=== PATIENT | female | born 1940 | race Two or more races ===

== ENCOUNTER 2023-09-13 10:44 | Inpatient (IN) | payer BC, OTHER ==
[~2023-09-13] VITALS: Ht 149.9 cm; Wt 75.8 kg
[2023-09-13 13:56] LABS: Chloride 108 mmol/L (98-107); Potassium 5.4 mmol/L (3.5-5.1); Sodium 134 mmol/L (136-145)
[2023-09-13 13:57] LABS: Anion Gap 9 (5-15); Carbon Dioxide 17 mmol/L (20-30)
[2023-09-13 13:58] LABS: Calcium 9.6 mg/dL (8.7-10.4)
[2023-09-13 14:00] LABS: INR 1.03 (0.9-1.15); Partial Thromboplastin Time 28.8 SEC (24.5-34.5); Prothrombin Time 10.8 sec (9.3-11.8)
[2023-09-13 14:02] LABS: BUN/Creatinine Ratio 28.6 (10.0-20.0); Blood Urea Nitrogen 32 mg/dL (9-23); Glucose 176 mg/dL (74-106)
[2023-09-13 14:18] LABS: Basophils # (auto) 0 10 ^3/uL (0-0.2); Basophils % (auto) 0.2 % (0.0-2.0); Eosinophils # (auto) 0.1 10 ^3/uL (0-0.8); Eosinophils % (auto) 0.4 % (0.0-7.0); Hemoglobin 11.9 g/dL (12.2-16.2); Lymphocytes # (auto) 1.6 10 ^3/uL (0.4-5.4); Lymphocytes % (auto) 11.5 % (10.0-50.0); Mean Corpuscular Hemoglobin 31.1 pg (28.0-32.0); Mean Corpuscular Volume 96.9 fL (80.0-100.0); Monocytes # (auto) 0.7 10 ^3/uL (0-1.3); Monocytes % (auto) 5.3 % (0.0-12.0); Neutrophils # (auto) 11.6 10 ^3/uL (1.6-8.6); Neutrophils % (auto) 82.6 % (37.0-80.0); Nucleated Red Blood Cells % 0.1 %; Red Blood Cells 3.82 10^6/uL (4.0-5.20); Red Cell Distribution Width 13.6 % (11.8-14.3); White Blood Cell 14.1 10^3/uL (4.4-10.8)
[2023-09-13] MEDS: ONDANSETRON HCL 4 MG/2 ML VIAL IV ONE (14:49)
[2023-09-13] MEDS: MORPHINE SULFATE INJ 2 MG/ml SYRG IV ONE (14:50)
[2023-09-13] MEDS: SODIUM BICARB 8.4% 50Meq/50ml SYR INJ IV ONE (15:00)
[2023-09-13 15:03] LABS: Urine Bacteria FEW /hpf (None Seen); Urine Blood Negative /uL (Negative); Urine Clarity Clear (Clear); Urine Color Colorless (Yellow); Urine Hyaline Cast FEW /lpf (0 - 2); Urine Protein, UAD Negative (Negative); Urine Specific Gravity 1.011 (1.001-1.035); Urine Urobilinogen Normal (Negative); Urine WBC 1 /hpf (0 - 5)
[2023-09-13] MEDS: CALCIUM GLUC 1,000mg/50ml-NS 50 ML IV ONE (15:42)
[2023-09-13] MEDS: DEXTROSE (50%) 50ML SYRG IV ONE (15:42)
[2023-09-13] MEDS: FUROSEMIDE 20 MG/2 ML VIAL IV ONE (15:42)
[2023-09-13] MEDS: InsuLIN REG 1unit/0.01ml Soln (100units/ml) IV ONE (15:49)
[2023-09-13 15:57] VITALS: PULSE 69; RESP 16; O2SAT 96
[2023-09-13] MEDS ORDERED: MORPHINE SULFATE INJ 2 MG/ml SYRG IV PRN (17:00)
[2023-09-13] MEDS ORDERED: ACETAMINOPHEN 325 MG TAB PO PRN (17:00)
[2023-09-13] MEDS ORDERED: SODIUM CHLORIDE 0.9% 1,000 ML IV SCH (17:00)
[2023-09-13] MEDS ORDERED: NITROGLYCERIN 0.4 MG SL TAB SL PRN (17:00)
[2023-09-13] MEDS: SODIUM CHLORIDE 0.9% 1,000 ML IV SCH (17:45)
[2023-09-13 18:17] LABS: Chloride 108 mmol/L (98-107); Potassium 5.2 mmol/L (3.5-5.1); Sodium 135 mmol/L (136-145)
[2023-09-13 18:18] LABS: Anion Gap 5 (5-15); Calcium 9.3 mg/dL (8.5-10.1); Carbon Dioxide 22 mmol/L (20-30)
[2023-09-13 18:23] LABS: BUN/Creatinine Ratio 29.2 (10.0-20.0); Blood Urea Nitrogen 31 mg/dL (9-23); Glucose 202 mg/dL (74-106)
[2023-09-13 19:30] VITALS: PULSE 67; RESP 16; O2SAT 100
[2023-09-13] MEDS: MORPHINE SULFATE INJ 2 MG/ml SYRG IV PRN (21:53)
[2023-09-13] MEDS: ONDANSETRON HCL 4 MG/2 ML VIAL IV PRN (21:54)
[2023-09-13] MEDS: SODIUM ZIRCONIUM CYCL 10 GM PAK PO SCH (22:32)
[2023-09-13] MEDS: HEPARIN SODIUM (PORCINE) 5000 UNITS/ML 1ML VIAL SC SCH (22:32)
[2023-09-14] VITALS (10 sets, daily range): BP systolic 127–154; BP diastolic 33–85; PULSE 60–88; RESP 13–20; TEMP 97.3–98.3; O2SAT 10–99
[2023-09-14] MEDS ORDERED: SUCCINYLCHOLINE CHLORIDE 20 MG/ML 10ML VIAL IV ONE (01:14)
[2023-09-14] MEDS ORDERED: LISI40TA16 PO (01:55)
[2023-09-14] MEDS ORDERED: METO200T42 PO (01:55)
[2023-09-14] MEDS ORDERED: NIFE1TAB31 PO (01:55)
[2023-09-14] MEDS ORDERED: ALEN70TA74 PO (01:55)
[2023-09-14] MEDS ORDERED: CLON0.1T PO (01:55)
[2023-09-14] MEDS ORDERED: APIX5TAB PO (01:55)
[2023-09-14] MEDS ORDERED: TRIA75TA55 PO (01:58)
[2023-09-14 04:56] LABS: Basophils # (auto) 0 10 ^3/uL (0-0.2); Basophils % (auto) 0.2 % (0.0-2.0); Eosinophils # (auto) 0.1 10 ^3/uL (0-0.8); Eosinophils % (auto) 1.3 % (0.0-7.0); Hematocrit 30.9 % (36.0-46.0); Hemoglobin 10.4 g/dL (12.2-16.2); Lymphocytes # (auto) 3.1 10 ^3/uL (0.4-5.4); Lymphocytes % (auto) 33.1 % (10.0-50.0); Mean Corpuscular Hemoglobin 31.9 pg (28.0-32.0); Mean Corpuscular Hgb Conc. 33.6 g/dL (32.0-36.0); Monocytes % (auto) 10.9 % (0.0-12.0); Neutrophils # (auto) 5.2 10 ^3/uL (1.6-8.6); Neutrophils % (auto) 54.5 % (37.0-80.0); Nucleated Red Blood Cells % 0.1 %; Red Blood Cells 3.26 10^6/uL (4.0-5.20); Red Cell Distribution Width 13.5 % (11.8-14.3); White Blood Cell 9.5 10^3/uL (4.4-10.8)
[2023-09-14] MEDS ORDERED: MEPERIDINE HCL (50 MG/ML) 1 ML VIAL ONE (13:27)
[2023-09-14] MEDS ORDERED: fentaNYL CITRATE 100 MCG/2 ML VL ONE (13:27)
[2023-09-14] MEDS ORDERED: ONDANSETRON HCL 4 MG/2 ML VIAL ONE (13:27)
[2023-09-14] MEDS ORDERED: ETOMIDATE (2MG/ML) 20ML VIAL IV ONE (13:27)
[2023-09-14] MEDS ORDERED: DexAMETHasone SOD PHOS 10MG/1ML VIAL INJ ONE (13:27)
[2023-09-14] MEDS ORDERED: MIDAZOLAM HCL 2MG/2ML 2ml VIAL (1mg/ml) ONE (13:27)
[2023-09-14] MEDS ORDERED: LIDOCAINE 1% INJ PF 5ML AMP ONE (13:27)
[2023-09-14] MEDS ORDERED: ROCURONIUM 10MG/ML 10ML VIAL IV ONE (13:27)
[2023-09-14] MEDS ORDERED: LIDOCAINE HCL 2% TOP JELLY 5ML TOP ONE (13:27)
[2023-09-14] MEDS: VANCOMYCIN HCL 1000 MG VL ONE (13:30)
[2023-09-14] MEDS ORDERED: HYDROmorphone HCL 2 MG/ML VL/or syr IV PRN ×2 (13:45)
[2023-09-14] MEDS ORDERED: METOCLOPRAMIDE HCL 5MG/ml INJ 2ml VIAL IV PRN (13:45)
[2023-09-14] MEDS ORDERED: MORPHINE SULFATE INJ 2 MG/ml SYRG IV PRN (13:45)
[2023-09-14] MEDS ORDERED: KETAMINE 50mg/ML 10ml Vial 10 ML ONE (14:26)
[2023-09-14] MEDS: BUPIVACAINE 0.25% INJ 50ML VIAL ONE (14:38)
[2023-09-14] MEDS ORDERED: FURO40TA4 PO (16:30)
[2023-09-15] VITALS (7 sets, daily range): BP systolic 91–140; BP diastolic 26–64; PULSE 65–91; RESP 16–20; TEMP 97.8–98.3; O2SAT 94–97
[2023-09-15] MEDS: HYDROcodone-ACET 5/325MG TAB PO PRN (14:41)
[2023-09-16] VITALS (8 sets, daily range): BP systolic 121–153; BP diastolic 24–44; PULSE 80–87; RESP 14–20; TEMP 97.8–98.4; O2SAT 92–99
[2023-09-16 05:55] LABS: Calcium 8.5 mg/dL (8.7-10.4); Chloride 106 mmol/L (98-107); Potassium 5.1 mmol/L (3.5-5.1); Sodium 134 mmol/L (136-145)
[2023-09-16 05:56] LABS: Anion Gap 5 (5-15); Carbon Dioxide 23 mmol/L (20-30)
[2023-09-16 06:01] LABS: BUN/Creatinine Ratio 29.4 (10.0-20.0); Blood Urea Nitrogen 55 mg/dL (9-23); Glucose 121 mg/dL (74-106)
[2023-09-16] MEDS: DOCUSATE SOD 100 MG CAP PO PRN (10:03)
[2023-09-17] VITALS (10 sets, daily range): BP systolic 99–127; BP diastolic 24–56; PULSE 71–94; RESP 15–19; TEMP 97.9–98.7; O2SAT 94–99
[2023-09-18] VITALS (9 sets, daily range): BP systolic 130–156; BP diastolic 40–68; PULSE 78–91; RESP 16–17; TEMP 97.6–98.4; O2SAT 90–99
[2023-09-19 00:57] VITALS: BP 126/47; PULSE 88; RESP 17; TEMP 98.5; O2SAT 95
== END 2023-09-19 01:15 | DRG 956 ==
LOC: EDBD 10:44 → ER 10:44 → TELE 17:04 → TELE-EAST 23:11
PROVIDERS: ADMIT Internal Medicine; ATTEND Internal Medicine
PROC: 0QS704Z Reposition Left Upper Femur with Internal Fixation Device, Open Approach (ICD-10-PCS; principal; 2023-09-14 14:06)
DX: S72.142A Displaced intertrochanteric fracture of left femur, initial encounter for closed fracture (principal); S32.592A Other specified fracture of left pubis, initial encounter for closed fracture; N17.0 Acute kidney failure with tubular necrosis; E87.20 Acidosis, unspecified; E87.5 Hyperkalemia; E11.65 Type 2 diabetes mellitus with hyperglycemia; W01.0XXA Fall on same level from slipping, tripping and stumbling without subsequent striking against object, initial encounter; I10 Essential (primary) hypertension; M81.0 Age-related osteoporosis without current pathological fracture; Z88.0 Allergy status to penicillin; Z95.0 Presence of cardiac pacemaker; Y93.89 Activity, other specified; Y92.89 Other specified places as the place of occurrence of the external cause; Y99.8 Other external cause status; Z82.49 Family history of ischemic heart disease and other diseases of the circulatory system
CPT/HCPCS: 36415; 70450; 71045; 73501; 74176; 76000; 80048; 81001; 82962; 84484; 85025; 85610; 85730; 86850; 86900; 86901; 93005; 93306; 96365; 96375; 97110; 97116; 97163; 97530; 99291; C1713; G0378; J0330; J1100; J1815; J2250; J2405; J3490